=== PATIENT | female | born 1995 | race Caucasian/White ===

== ENCOUNTER 2018-11-11 21:49 | Emergency (ER) | payer SELFPAY ==
[~2018-11-11] VITALS: Ht 170.2 cm; Wt 79.4 kg
[2018-11-11 21:52] VITALS: BP 118/79
--- NOTE | 2018-11-11 22:00 | NUR ---
PT TAKEN TO BED 11
--- NOTE | 2018-11-11 22:08 | NUR ---
PT CAME TO ER FOR FLUID FILLED BLISTER ON MIDDLE FINGER. NO REDNESS, NO BLEEDING, NO DRAINAGE NOTED. SKIN INTACT. POSITIVE CMS. PER PT SHE WRAPPED A RUBBER BAND AROUND MIDDLE FINGER. PT DENIES ANY PAIN. NKA. NO MED HX. SAFETY MEASURES IN PLACE. WAITING FOR ERMD TO EVALUATE PT.
--- NOTE | 2018-11-11 22:14 | NUR ---
Dr. Zaays examining patient.
[2018-11-11] MEDS ORDERED: NEOMYCIN/POLYMYXIN/BACITRACIN 0.9 GM/1 PKT TP ONE (22:20)
--- NOTE | 2018-11-11 22:35 | NUR ---
PT WOUND ON R 3RD FINGER COVERED WITH NON ADHERENT DRESSING AND WRAPPED WITH AUBREE WRAP AFTER BACITRACIN APPLIED. +CSM
[2018-11-11 22:45] VITALS: BP 118/79
--- NOTE | 2018-11-11 22:45 | NUR ---
Patient discharged with v/s stable. Written and verbal after care instructions given and explained. Patient alert, oriented and verbalized understanding of instructions. Ambulatory with steady gait. All questions addressed prior to discharge. ID band removed. Patient advised to follow up with PMD. Rx of NEOSPORIN given. Patient educated on indication of medication including possible reaction and side effects. Opportunity to ask questions provided and answered.
== END 2018-11-11 22:45 | disposition home or self-care (01) ==
LOC: MED 21:49
DX: S60.422A Blister (nonthermal) of right middle finger, initial encounter (principal); Y99.8 Other external cause status; X58.XXXA Exposure to other specified factors, initial encounter; Y93.89 Activity, other specified; Y92.89 Other specified places as the place of occurrence of the external cause
CPT/HCPCS: 90471; 90715; 99283